=== PATIENT | female | born 1995 | race Caucasian/White ===

== ENCOUNTER 2021-05-12 21:38 | Emergency (ER) | payer OTHER ==
[~2021-05-12] VITALS: Ht 172.7 cm; Wt 86.7 kg
[2021-05-12 21:40] VITALS: BP 144/89
[2021-05-12] MEDS ORDERED: AMOXICILLIN 500 MG (POLYMOX) CAP PO STA (21:53)
[2021-05-12] MEDS ORDERED: oxyCODONE/APAP 5/325MG (PERCOCET 5) TABLET PO ONE (22:00)
--- NOTE | 2021-05-12 22:01 | ED EENT ---
History of Present Illness General Chief Complaint: Dental Problems/Pain Stated Complaint: TOOTH PAIN Nursing Triage Note: Patient states that she is having pain in her upper right jaw. 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 Patient states she was supposed to have a root canal but was unable to afford it at the time. Source: patient Exam Limitations: no limitations History of Present Illness Date Seen by Provider: May 12, 2021 Time Seen by Provider: 21:45 Initial Comments Patient is a 25-year-old female who presents with right upper posterior molar/maxillary pain. Patient states symptoms began 30 minutes prior to ED arrival. She states she was told 2 months ago from by her dentist that she needed a root canal to her posterior molar. She was unable to do so at this time due to lack of dental insurance. Pain is described as sharp rated 10 out of 10 is worse with mastication with sensitivity to light touch. Ibuprofen taken prior to ED arrival without improvement. No dysphonia dysphagia drooling or hoarseness. No other symptoms or complaints. Timing/Duration: gradual Severity: severe Location: dental Prearrival Treatment: other Modifying Factors: Improves With Other Associated Symptoms: other Allergies and Home Medications Allergies Coded Allergies: No Known Drug Allergies (Unverified , 05/12/21) Patient Home Medication List Home Medication List Reviewed: Yes Review of Systems Review of Systems Constitutional: see HPI Eyes: See HPI Ears: See HPI Nose: see HPI Mouth: see HPI Throat: see HPI Respiratory: see HPI Gastrointestinal: no symptoms reported Past Rmelzkj-Rvarua-Ogdbyr Hx Patient Social History Tobacco Use?: Yes Substance use?: No Alcohol Use?: No Pt feels they are or have been: No Past Medical History Last Menstrual Period: May 05, 2021 Physical Exam Vital Signs Vital Signs - First Documented 05/12/21 21:40 Temp 37.0 Pulse 84 Resp 16 B/P (MAP) 144/89 (107) Pulse Ox 97 O2 Delivery Room Air Height, Weight, BMI Height: '" Weight: lbs. oz. kg; 29.00 BMI Method: General Appearance: moderate distress Eyes: bilateral eye EOMI Ears: bilateral ear auricle normal Nose: normal inspection Mouth/Throat: pharynx normal, dental tenderness; No trismus, No uvula swelling, No voice changes; other Neck: full range of motion, supple Cardiovascular: regular rate, rhythm Respiratory: lungs clear Progress/Results/Core Measures Results/Orders My Orders Orders - CAITLIN MATHEWS DO Oxycodone/Apap 5/325mg Tablet (Percocet (05/12/21 22:00) Amoxicillin Capsule (Polymox Capsule) (05/12/21 21:53) Vital Signs/I&O 05/12/21 21:40 Temp 37.0 Pulse 84 Resp 16 B/P (MAP) 144/89 (107) Pulse Ox 97 O2 Delivery Room Air Blood Pressure Mean: 107 Departure Communication (Admissions) Patient with dental pain secondary to dental caries. Pain addressed. First dose of antibiotics given. Recommendations continue therapeutic supportive care with dental follow-up [facility] return precautions reviewed. Patient verbalizes understanding agreement discharge instructions prior to departure. Impression Primary Impression: Pain due to dental caries Disposition: HOME, SELF-CARE Condition: Stable Departure-Patient Inst. Decision time for Depature: 21:59 Referrals: INDU DHILLON MD (PCP/Family) Primary Care Physician Patient Instructions: Dental Pain ED Add. Discharge Instructions: Please continue ibuprofen and take newly prescribed medications as directed. Please complete full course of antibiotics and follow-up with dentist of choice [facility]. Return to the ED if new or worsening symptoms. All discharge instructions reviewed with patient and/or family. Voiced understanding. Scripts Oxycodone HCl/Acetaminophen (Percocet 5-325 mg Tablet) 1 Each Tablet 1 TAB PO Q4H for PAIN-MODERATE MDD 6 TABS for 7 Days, #10 TAB Prov: CAITLIN MATHEWS DO 05/12/21 Penicillin V Potassium (Penicillin V Potassium) 500 Mg Tablet 500 MG PO QID, #40 TAB Prov: CAITLIN MATHEWS DO 05/12/21 CAITLIN MATHEWS DO May 12, 2021 22:01
[2021-05-12] MEDS ORDERED: PENI500T PO (22:03)
[2021-05-12] MEDS ORDERED: OXYC1TAB87 PO (22:03)
== END 2021-05-12 22:10 | disposition home or self-care (01) ==
LOC: ER FS 21:40
DX: K02.9 Dental caries, unspecified (principal)
CPT/HCPCS: 99283

== ENCOUNTER 2021-11-01 18:32 | Emergency (ER) | payer OTHER ==
[~2021-11-01] VITALS: Ht 175 cm; Wt 89.4 kg
[~2021-11-01 18:32] MED LIST: OXYC1TAB87 PO; PENI500T PO
[2021-11-01 18:40] VITALS: BP 133/92
[2021-11-01] MEDS ORDERED: KETOROLAC 60 MG/2 ML VIAL IM ONE (19:00)
--- NOTE | 2021-11-01 19:27 | Diagnostic Imaging Report ---
INDICATION: Fall, trauma. COMPARISON: None. EXAMINATION: Single view of the pelvis. FINDINGS: No fracture or dislocation. SI joints are symmetric. Hips are normal. IMPRESSION: Negative pelvis. Dictated by: Dictated on workstation # [id number]
[2021-11-01] MEDS ORDERED: oxyCODONE/APAP 5/325MG (PERCOCET 5) TABLET PO ONE (19:30)
--- NOTE | 2021-11-01 20:28 | Diagnostic Imaging Report ---
PROCEDURE: CT pelvis without contrast. TECHNIQUE: Multiple contiguous axial images were obtained through the pelvis without the use of intravenous contrast. Sagittal and coronal reformations were performed. Auto Exposure Controls were utilized during the CT exam to meet ALARA standards for radiation dose reduction. INDICATION: Left pelvic pain, fall, trauma, swelling. COMPARISON: Plain film from same date. FINDINGS: The sacrum, bilateral hips and bony pelvis are intact. There is no fracture. The SI joints and symphysis are symmetric. There is no joint effusion or hematoma. IMPRESSION: No fracture or dislocation. Dictated by: Dictated on workstation # [id number]
--- NOTE | 2021-11-01 20:33 | ED General ---
General Chief Complaint: Lower Extremity Stated Complaint: LT GROIN PAIN; FALL Nursing Triage Note: Pt reports she fell approx 4ft off a horse and is c/o left groin pain. Pt denies LOC or c-spine tenderness. Pt is able to bear weight to left leg but does c/o of pain. 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 Source of Information: Patient History of Present Illness Date Seen by Provider: Nov 01, 2021 Time Seen by Provider: 19:00 Initial Comments Patient is a 25-year-old female presents with pelvic pain after falling from a horse. Patient was riding a horse low rate of speed when she fell upon dismoun ting landing on her left side. She reports right inner proximal groin pain which is described as deep and burning. It is moderate to severe worse with ambulation. She denies back pain, hip or lower extremity pain. She not hit her head. She denies neck pain midline back pain or loss of consciousness. No medications or therapies taken prior to ED arrival. Timing/Duration: 1-3 Hours Severity: Moderate Modifying Factors: improves with Other Associated Systoms: Other Allergies and Home Medications Allergies Coded Allergies: No Known Drug Allergies (Unverified , 05/12/21) Patient Home Medication List Home Medication List Reviewed: Yes Oxycodone HCl/Acetaminophen (Percocet 5-325 mg Tablet) 1 Each Tablet, 1 TAB PO Q4H Prescribed by: CAITLIN MATHEWS on 05/12/212202 Penicillin V Potassium (Penicillin V Potassium) 500 Mg Tablet, 500 MG PO QID Prescribed by: CAITLIN MATHEWS on 05/12/212202 Review of Systems Review of Systems Constitutional: see HPI Musculoskeletal: see HPI Past Stmbxkj-Xhguuk-Kuzfzr Hx Patient Social History Tobacco Use?: No Use of E-Cig and/or Vaping dev: No Substance use?: No Alcohol Use?: No Pt feels they are or have been: No Immunizations Up To Date Influenza Vaccine Up-to-Date: No; Not Current Second COVID19 Vaccination Preston: Marito January 2021 Physical Exam Vital Signs Vital Signs - First Documented 11/01/21 18:40 Temp 36.2 Pulse 100 Resp 16 B/P (MAP) 133/92 (106) Pulse Ox 100 O2 Delivery Room Air Capillary Refill : Less Than 3 Seconds Height, Weight, BMI Height: '" Weight: lbs. oz. kg; 29.00 BMI Method: General Appearance: Moderate Distress (Secondary to pain) HEENT: PERRL/EOMI Neck: Non Tender Respiratory: Lungs Clear Cardiovascular: Regular Rate, Rhythm Gastrointestinal: Normal Bowel Sounds, Non Tender, Soft Extremity: Non Tender, No Calf Tenderness, Other (Pelvic tenderness, no deformities) Progress/Results/Core Measures Suspected Sepsis SIRS Temperature: Pulse: 100 Respiratory Rate: 16 Blood Pressure 133 /92 Mean: 106 Results/Orders My Orders Orders - CAITLIN MATHEWS DO Urine Bedside (11/01/21 18:50) Pelvis (Ap) (11/01/21 18:50) Ketorolac Injection (Toradol Injection) (11/01/21 19:00) Oxycodone/Apap 5/325mg Tablet (Percocet (11/01/21 19:30) Ct Pelvis Wo (11/01/21 19:34) Medications Given in ED Current Medications Medications Dose Ordered Sig/Nancy Route Start Time Stop Time Status Last Admin Dose Admin Ketorolac Tromethamine 60 mg ONCE ONCE IM 11/01/21 19:00 11/01/21 19:01 DC 11/01/21 19:08 60 MG Oxycodone/ Acetaminophen 2 tab ONCE ONCE PO 11/01/21 19:30 11/01/21 19:31 DC 11/01/21 19:32 2 TAB Vital Signs/I&O 11/01/21 18:40 Temp 36.2 Pulse 100 Resp 16 B/P (MAP) 133/92 (106) Pulse Ox 100 O2 Delivery Room Air Capillary Refill : Less Than 3 Seconds Blood Pressure Mean: 106 Departure Communication (Admissions) Patient with pelvic pain disproportionate to exam. X-ray unremarkable. Concerned about occult fracture. Will obtain CT pelvis and treat accordingly Impression Primary Impression: Sprain of groin Disposition: HOME, SELF-CARE Condition: Stable Departure-Patient Inst. Decision time for Depature: 20:35 Referrals: NO,LOCAL PHYSICIAN (PCP) Primary Care Physician Patient Instructions: Sprain (DC) Add. Discharge Instructions: Your evaluated in the emergency department for pelvic pain and groin pain. CT imaging of the pelvis was performed does not show an acute fracture. Please apply ice to the affected area for 20 to 30 minutes every 2-3 hours for the next 2 days and take 600 mg of ibuprofen 3 times daily for pain. You may take hyd rocodone as needed for additional relief, follow-up with your PCP in 5 to 7 days as needed. Return to the ED if new or worsening symptoms. All discharge instructions reviewed with patient and/or family. Voiced understanding. Scripts Hydrocodone/Acetaminophen (Hydrocodone-Acetamin 5-325 mg) 1 Each Tablet 1 TAB PO Q4H PRN for PAIN-MODERATE (5-7), #12 TAB Prov: CAITLIN MATHEWS DO 11/01/21 Work/School Note: Work Release Form Date Seen in the Emergency Department: Nov 01, 2021 Return to Work: Nov 03, 2021 Other Restrictions Listed Below: Please restrict for light duty as tolerated by the patient for 1 week CAITLIN MATHEWS DO Nov 01, 2021 20:33
[2021-11-01] MEDS ORDERED: ACHD5005 PO (20:40)
== END 2021-11-01 20:48 | disposition home or self-care (01) ==
LOC: EDUNIT# 18:32 → ER FS 18:34
DX: S76.911A Strain of unspecified muscles, fascia and tendons at thigh level, right thigh, initial encounter (principal); V80.010A Animal-rider injured by fall from or being thrown from horse in noncollision accident, initial encounter
CPT/HCPCS: 72170; 72192; 84703

== ENCOUNTER 2022-11-10 08:30 | Emergency (ER) | payer OTHER ==
[~2022-11-10 08:30] MED LIST changes: +ACHD5005 PO
[2022-11-10] MEDS ORDERED: ONDANSETRON 4 MG (ZOFRAN) ORAL DISSOLVE TAB SL STA (08:54)
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
[2022-11-10 09:57] VITALS: BP 148/95
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
== END 2022-11-10 10:15 | disposition home or self-care (01) ==
LOC: EDUNIT# 08:30 → ER FS 08:32
DX: S06.0X0A Concussion without loss of consciousness, initial encounter (principal); M54.2 Cervicalgia; M54.50 Low back pain, unspecified; M54.6 Pain in thoracic spine; Z28.310 Unvaccinated for COVID-19; V48.5XXA Car driver injured in noncollision transport accident in traffic accident, initial encounter; Y92.410 Unspecified street and highway as the place of occurrence of the external cause
CPT/HCPCS: 70450; 72125; 72128; 72131